=== PATIENT | male | born 1990 | race Caucasian/White ===

== ENCOUNTER 2024-03-30 11:26 | Inpatient (IN) | payer SELFPAY ==
[2024-03-30 12:54] LABS: #Basophils 0.07 10x3/uL (0.0-0.2); %Basophils 0.7 % (0.0-1.0); %Eosinophils 0.7 % (0.0-10.0); %Lymphocytes 19.1 % (21.0-51.0); %Monocytes 8.6 % (0.0-10.0); %Neutrophils 70.5 % (42.0-75.0); Hematocrit 44.6 % (42.0-52.0); Mean Corpuscular HGB CONC 33.6 g/dL (32.0-36.0); Mean Corpuscular Hemoglobin 31.4 pg (27.0-31.0); Mean Corpuscular Volume 93.3 fL (78.0-98.0); Mean Platelet Volume 9.7 fL (7.4-10.4); Platelet Count 350 10x3/uL (130-400); RBC Distribution Width 13.8 % (11.5-14.5); Red Blood Cell (RBC) Count 4.78 mill/uL (4.70-6.10)
[2024-03-30 13:16] LABS: ALT (SGPT) 16 U/L (8-55); AST (SGOT) 19 U/L (5-34); Albumin 4.2 g/dL (3.5-5.0); Alkaline Phosphatase 70 U/L (40-110); Anion Gap 12 mmol/L (10-20); BUN (Urea Nitrogen) 13 mg/dL (8.9-20.6); Bilirubin, Total 0.7 mg/dL (0.2-1.2); Calc. Creatinine Clearance 0 mL/min (70-130); Calcium 9.7 mg/dL (7.8-10.44); Carbon Dioxide 28 mmol/L (22-29); Chloride 105 mmol/L (98-107); Estimated GFR 107; Globulin 3.4 g/dL (2.4-3.5); Glucose 99 mg/dL (70-105); Potassium 4.4 mmol/L (3.5-5.1); Protein, Total 7.6 g/dL (6.0-8.3); Sodium 141 mmol/L (136-145)
[2024-03-30 13:17] LABS: Acetaminophen Less than 10 mcg/mL (Less than 10); Alcohol Less than 10.0 mg/dL (Less than 10); Salicylate Less than 8.0 mg/dL (Less than 8.0)
[2024-03-30 15:58] LABS: Bacteria/HPF None Seen HPF (None Seen); Bilirubin Negative (Negative); Blood, Urine Negative (Negative); CAUTI Indications for Culture Dysuria,urgency,freq; Clarity Extra Turbid (Clear); Glucose, Urine (Dipstick) Normal (Negative); Ketone, Urine Negative (Negative); Leukocyte Negative Leu/uL (Negative); Nitrite Negative (Negative); Protein, Urine (Dipstick) 30 mg/dL (Neg-Trace); RBC/HPF None Seen HPF (0-3); Specific Gravity, Urine 1.025 (1.002-1.036); Squamous Epithelial None Seen HPF (0-3); Urobilinogen Normal mg/dL (Less than 2); WBC/HPF None Seen HPF (0-3); pH, Urine 7.5 (5.0-9.0)
[2024-03-30 16:02] LABS: Amphetamine Not Detected (NotDetected); Barbiturates Screen Not Detected (NotDetected); Benzodiazepine Screen Not Detected (NotDetected); Cocaine Metabolite Screen Not Detected (NotDetected); Methadone Not Detected (NotDetected); Methamphetamine Not Detected (NotDetected); Opiate Screen Not Detected (NotDetected); Oxycodone Screen Not Detected (NotDetected); Phencyclidine (PCP) Not Detected (NotDetected); THC/Cannabinoid Screen Detected (NotDetected); Tricyclic Screen Not Detected (NotDetected)
[2024-03-30 16:04] LABS: Urine Culture Reflex No No
[2024-03-30] MEDS ORDERED: Thiamine HCl 200 MG/2 ML VIAL ONE (16:50)
[2024-03-30 18:05] LABS: Troponin I Less than 0.010 ng/mL (< 0.028)
[2024-03-30] MEDS ORDERED: Senokot S 8.6-50 MG TAB PO PRN (18:35)
[2024-03-30] MEDS ORDERED: Acetaminophen 325 MG TAB PO PRN (18:35)
[2024-03-30] MEDS ORDERED: Ondansetron PF 4 MG/2 ML Vial IVP PRN (18:35)
[2024-03-30 18:39] LABS: Magnesium 1.8 mg/dL (1.6-2.6)
[2024-03-30] MEDS ORDERED: Famotidine/PF 20 mg/2ml Vial ONE (23:45)
[2024-03-31] MEDS: Sodium Chloride 0.9% 1,000 ML IV SCH (01:00)
[2024-03-31] MEDS: Famotidine/PF 20 mg/2ml Vial SLOW IVP SCH (01:35)
[2024-03-31 02:37] VITALS: BMI 25.5
[2024-03-31] MEDS ORDERED: Enoxaparin 40 MG (0.4 mL) SYRINGE ONE (10:07)
[2024-03-31] MEDS: Enoxaparin 40 MG (0.4 mL) SYRINGE SC SCH (10:59)
[2024-03-31] MEDS ORDERED: Magnevist 469MG/ML 20 ML VIAL ONE (11:05)
[2024-03-31 12:23] VITALS: BP 130/89; TEMP 98.6
== END 2024-03-31 15:50 | disposition home or self-care (01) | DRG 101 ==
LOC: ERS 11:26 → ERHOLD 17:56 → PCU 03-31 12:24
PROVIDERS: ADMIT Hospitalist; ATTEND Internal Medicine
PROC: XX20X89 Monitoring of Brain Electrical Activity, Computer-aided Detection and Notification, New Technology Group 9 (ICD-10-PCS; principal; 2024-03-30)
DX: R56.9 Unspecified convulsions (principal); Z53.29 Procedure and treatment not carried out because of patient's decision for other reasons
CPT/HCPCS: 36415; 70450; 70553; 71045; 76376; 80053; 80306; 80307; 83735; 84146; 84443; 84484; 85025; 93005; 96374; J1650; J3411; J3490; J7030

== ENCOUNTER 2024-04-19 17:04 | Inpatient (IN) | payer SELFPAY ==
[2024-04-19] MEDS ORDERED: Lorazepam 2 MG/ML VIAL ONE ×4 (17:55→20:56)
[2024-04-19] MEDS ORDERED: levETIRAcetam 500 MG (5 mL) VIAL ONE (18:07)
[2024-04-19 18:14] LABS: Hematocrit 53.2 % (42.0-52.0); Hemoglobin 16.7 g/dL (14.0-18.0); Mean Corpuscular HGB CONC 31.4 g/dL (32.0-36.0); Mean Corpuscular Hemoglobin 31.1 pg (27.0-31.0); Mean Corpuscular Volume 99.1 fL (78.0-98.0); Mean Platelet Volume 9.6 fL (7.4-10.4); Platelet Count 405 10x3/uL (130-400); RBC Distribution Width 13.2 % (11.5-14.5); Red Blood Cell (RBC) Count 5.37 mill/uL (4.70-6.10)
[2024-04-19 18:27] LABS: ALT (SGPT) 22 U/L (8-55); AST (SGOT) 26 U/L (5-34); Albumin 4.9 g/dL (3.5-5.0); Alkaline Phosphatase 87 U/L (40-110); Anion Gap 30 mmol/L (10-20); BUN (Urea Nitrogen) 15 mg/dL (8.9-20.6); Bilirubin, Total 0.3 mg/dL (0.2-1.2); Calc. Creatinine Clearance 0 mL/min (70-130); Calcium 10.5 mg/dL (7.8-10.44); Carbon Dioxide 10 mmol/L (22-29); Chloride 105 mmol/L (98-107); Estimated GFR 74; Globulin 4.2 g/dL (2.4-3.5); Glucose 185 mg/dL (70-105); Potassium 3.7 mmol/L (3.5-5.1); Protein, Total 9.1 g/dL (6.0-8.3); Sodium 141 mmol/L (136-145)
[2024-04-19 18:38] LABS: Band 5 % (5-11); Large Platelets 2.9 % (0-5); Lymphocytes 9 % (21-51); Monocytes 8 % (0-10); Neutrophil 73 % (42-75); Platelet Adequacy Comment Platelets Increased; Reactive Lymphocytes 5 % (0-10); Smudge Cells 5.8 %; Tear Drops SLIGHT = 2-5 cells HPF (0-1)
[2024-04-19] MEDS ORDERED: Acetaminophen 325 MG TAB PO PRN (21:11)
[2024-04-19 21:12] LABS: Actual Bicarbonate (HCO3v) 22.6 mEq/L (22-28); Base Excess -2.9 mEq/L (-2.0 to +3.0); Chloride (VBG) 103 mmol/L (98-106); Hematocrit-VBG 49 % (42.0-52.0); Hemoglobin (Hb) 16.5 g/dL (13.2-17.3); Potassium (VBG) 4.14 mmol/L (3.70-5.30); Sodium 141 mmol/L (133-146); pH (venous) 7.353 (7.32-7.43)
[2024-04-19] MEDS: Lactated Ringer's 1,000 ML IV SCH (23:40)
[2024-04-19 23:47] LABS: ALT (SGPT) 19 U/L (8-55); AST (SGOT) 24 U/L (5-34); Albumin 4.3 g/dL (3.5-5.0); Alkaline Phosphatase 78 U/L (40-110); Anion Gap 18 mmol/L (10-20); BUN (Urea Nitrogen) 16 mg/dL (8.9-20.6); Bilirubin, Total 0.4 mg/dL (0.2-1.2); Calc. Creatinine Clearance 0 mL/min (70-130); Calcium 9.5 mg/dL (7.8-10.44); Carbon Dioxide 19 mmol/L (22-29); Chloride 106 mmol/L (98-107); Estimated GFR 89; Globulin 3.4 g/dL (2.4-3.5); Glucose 113 mg/dL (70-105); Potassium 4.3 mmol/L (3.5-5.1); Protein, Total 7.7 g/dL (6.0-8.3); Sodium 139 mmol/L (136-145)
[2024-04-20 00:09] LABS: Lactic Acid 0.94 mmol/L (0.5-2.2)
[2024-04-20 05:12] VITALS: BMI 25.6
[2024-04-20] MEDS: Ondansetron PF 4 MG/2 ML Vial IVP PRN (05:35)
[2024-04-20] MEDS: Lorazepam 2 MG/ML VIAL SLOW IVP PRN (05:36)
[2024-04-20 06:16] LABS: #Basophils 0.05 10x3/uL (0.0-0.2); #Eosinophils Less than 0.03 10x3/uL (0.0-0.7); %Basophils 0.2 % (0.0-1.0); %Lymphocytes 13.4 % (21.0-51.0); %Monocytes 9.9 % (0.0-10.0); %Neutrophils 75.7 % (42.0-75.0); Hematocrit 45.4 % (42.0-52.0); Hemoglobin 15.5 g/dL (14.0-18.0); Mean Corpuscular HGB CONC 34.1 g/dL (32.0-36.0); Mean Corpuscular Hemoglobin 30.9 pg (27.0-31.0); Mean Corpuscular Volume 90.6 fL (78.0-98.0); Mean Platelet Volume 9.2 fL (7.4-10.4); Platelet Count 360 10x3/uL (130-400); RBC Distribution Width 13.6 % (11.5-14.5); Red Blood Cell (RBC) Count 5.01 mill/uL (4.70-6.10)
[2024-04-20 06:18] LABS: Amphetamine Not Detected (NotDetected); Barbiturates Screen Not Detected (NotDetected); Benzodiazepine Screen Detected (NotDetected); Cocaine Metabolite Screen Detected (NotDetected); Methadone Not Detected (NotDetected); Methamphetamine Not Detected (NotDetected); Opiate Screen Not Detected (NotDetected); Oxycodone Screen Not Detected (NotDetected); Phencyclidine (PCP) Not Detected (NotDetected); THC/Cannabinoid Screen Detected (NotDetected); Tricyclic Screen Not Detected (NotDetected)
[2024-04-20 06:29] LABS: Anion Gap 16 mmol/L (10-20); BUN (Urea Nitrogen) 18 mg/dL (8.9-20.6); Calc. Creatinine Clearance 88 mL/min (70-130); Calcium 9.3 mg/dL (7.8-10.44); Carbon Dioxide 20 mmol/L (22-29); Chloride 106 mmol/L (98-107); Estimated GFR 71; Glucose 107 mg/dL (70-105); Potassium 3.7 mmol/L (3.5-5.1); Sodium 138 mmol/L (136-145)
[2024-04-20] MEDS: levETIRAcetam 500 MG (5 mL) VIAL SLOW IVP SCH (08:56)
[2024-04-20] MEDS ORDERED: HYDROcodone/Acetaminophen 5/325 mg Tablet PO SCH (12:15)
[2024-04-20] MEDS: Cyclobenzaprine 10 MG TAB PO SCH (15:40)
[2024-04-20 17:47] LABS: Bacteria/HPF None Seen HPF (None Seen); Bilirubin Negative (Negative); Blood, Urine Negative (Negative); CAUTI Indications for Culture Alt mental st,lethar; Clarity Turbid (Clear); Glucose, Urine (Dipstick) Normal (Negative); Ketone, Urine Negative (Negative); Leukocyte Negative Leu/uL (Negative); Nitrite Negative (Negative); Protein, Urine (Dipstick) Negative (Neg-Trace); RBC/HPF 0-3 HPF (0-3); Specific Gravity, Urine 1.006 (1.002-1.036); Squamous Epithelial None Seen HPF (0-3); Urobilinogen Normal mg/dL (Less than 2); WBC/HPF 0-3 HPF (0-3)
[2024-04-20 17:52] LABS: Urine Culture Reflex No No
[2024-04-20] MEDS: Cyclobenzaprine 10 MG TAB PO PRN (19:16)
[2024-04-20] MEDS: HYDROcodone/Acetaminophen 5/325 mg Tablet PO SCH (19:51)
[2024-04-21] MEDS: HYDROcodone/Acetaminophen 7.5/325 mg Tablet PO SCH (03:51)
[2024-04-21 03:55] VITALS: TEMP 97.9
[2024-04-21 05:31] LABS: #Basophils 0.07 10x3/uL (0.0-0.2); %Basophils 0.5 % (0.0-1.0); %Eosinophils 0.9 % (0.0-10.0); %Lymphocytes 24.5 % (21.0-51.0); %Monocytes 9.7 % (0.0-10.0); %Neutrophils 64.1 % (42.0-75.0); Hematocrit 43.2 % (42.0-52.0); Hemoglobin 15.1 g/dL (14.0-18.0); Mean Corpuscular Hemoglobin 31.4 pg (27.0-31.0); Mean Corpuscular Volume 89.8 fL (78.0-98.0); Mean Platelet Volume 9.4 fL (7.4-10.4); Platelet Count 353 10x3/uL (130-400); RBC Distribution Width 13.3 % (11.5-14.5); Red Blood Cell (RBC) Count 4.81 mill/uL (4.70-6.10)
[2024-04-21 05:41] LABS: Anion Gap 14 mmol/L (10-20); BUN (Urea Nitrogen) 21 mg/dL (8.9-20.6); Calc. Creatinine Clearance 81 mL/min (70-130); Calcium 9.3 mg/dL (7.8-10.44); Carbon Dioxide 23 mmol/L (22-29); Chloride 103 mmol/L (98-107); Estimated GFR 64; Glucose 104 mg/dL (70-105); Potassium 3.5 mmol/L (3.5-5.1); Sodium 136 mmol/L (136-145)
== END 2024-04-21 13:22 | disposition home or self-care (01) | DRG 101 ==
LOC: ERS 17:04 → IMCU/EMU 20:51
PROVIDERS: ADMIT Internal Medicine; ATTEND Family Medicine
PROC: XX20X89 Monitoring of Brain Electrical Activity, Computer-aided Detection and Notification, New Technology Group 9 (ICD-10-PCS; principal; 2024-04-20)
PROC: 4A00X4Z Measurement of Central Nervous Electrical Activity, External Approach (ICD-10-PCS; 2024-04-20)
DX: G40.901 Epilepsy, unspecified, not intractable, with status epilepticus (principal); E87.20 Acidosis, unspecified; Z71.51 Drug abuse counseling and surveillance of drug abuser; M54.50 Low back pain, unspecified; D72.829 Elevated white blood cell count, unspecified; G89.29 Other chronic pain; Z87.820 Personal history of traumatic brain injury; F12.90 Cannabis use, unspecified, uncomplicated; E86.0 Dehydration
CPT/HCPCS: 36415; 70450; 71045; 76999; 80048; 80053; 80306; 81001; 82550; 82805; 83605; 84146; 85025; 93005; 95700; 95705; 95957; 96365; 96375; 96376; J1953; J2060; J2405; J7120

== ENCOUNTER 2024-07-02 12:40 | Outpatient (CLI) | payer BC | END 2024-07-02 12:41 | disposition home or self-care (01) | LOC: SCSMRI 12:40 | DX: M54.50 Low back pain, unspecified (principal); R56.9 Unspecified convulsions; R41.82 Altered mental status, unspecified; M51.26 Other intervertebral disc displacement, lumbar region; M48.07 Spinal stenosis, lumbosacral region; R60.9 Edema, unspecified; G93.89 Other specified disorders of brain; R90.89 Other abnormal findings on diagnostic imaging of central nervous system; Z98.890 Other specified postprocedural states | CPT/HCPCS: 36415; 70553; 72158; 76376; 82565 ==